=== PATIENT | male | born 1975 | race Caucasian/White ===

== ENCOUNTER 2021-06-16 01:53 | Emergency (ER) | payer OTHER ==
[2021-06-16 03:27] VITALS: BP 112/76
[2021-06-16 04:04] LABS: URINE APPEARANCE CLEAR; URINE COLOR YELLOW
[2021-06-16 04:05] LABS: PH-URINE 6.5 (5.0 - 8.0); URINE BILIRUBIN NEGATIVE (NEGATIVE); URINE BLOOD NEGATIVE (NEGATIVE); URINE GLUCOSE NEGATIVE (NEGATIVE); URINE KETONE NEGATIVE (NEGATIVE); URINE LEUKOCYTE ESTERASE NEGATIVE (NEGATIVE); URINE NITRATE NEGATIVE (NEGATIVE); URINE PROTEIN(semi-quant) NEGATIVE (NEGATIVE); URINE UROBILINOGEN NORMAL (NORMAL); URINE WBC 0-1 /hpf (0-3)
== END 2021-06-16 03:27 ==
LOC: ED 01:53
PROVIDERS: Physician Assistant
DX: S09.90XA Unspecified injury of head, initial encounter (principal); S00.81XA Abrasion of other part of head, initial encounter; S61.210A Laceration without foreign body of right index finger without damage to nail, initial encounter; F17.210 Nicotine dependence, cigarettes, uncomplicated; Z28.310 Unvaccinated for COVID-19; Y04.2XXA Assault by strike against or bumped into by another person, initial encounter